=== PATIENT | male | born 1985 | race American Indian/Alaskan Native ===

== ENCOUNTER 2020-12-03 23:04 | Emergency (ER) | payer MEDICAID ==
[2020-12-04] MEDS ORDERED: ASPIRIN 325 MG TAB PO ONE (00:19)
--- NOTE | 2020-12-04 00:56 | XRay Report ---
CHEST 2 VIEWS, 12/03/2020 11:45 PM INDICATION: Chest pain COMPARISON: None FINDINGS: Support devices: None. Heart: The cardiac silhouette is normal in size. Lungs/pleura: The lungs are clear of focal airspace disease or significant pleural effusion. Additional findings: No significant acute abnormality. IMPRESSION: 1. No evidence of acute cardiopulmonary process. Signer Name: Shweta Stover MD Signed: 12/04/2020 12:51 AM Workstation Name: [id number]
[2020-12-04 01:06] LABS: Basophils % (Auto) 0.6 % (0.0-1.8); Eosinophils # (Auto) 0.2 K/mm3 (0.0-0.4); Eosinophils % (Auto) 2.1 % (0.0-4.3); Hematocrit 44.5 % (35.5-45.6); Hemoglobin 15.5 gm/dl (11.8-15.2); Lymphocytes # (Auto) 3.3 K/mm3 (1.2-5.4); Lymphocytes % (Auto) 41.3 % (13.4-35.0); Mean Corpuscular HGB Conc 35 % (32-34); Mean Corpuscular Volume 91 fl (84-94); Monocytes # (Auto) 0.5 K/mm3 (0.0-0.8); Monocytes % (Auto) 5.7 % (0.0-7.3); Platelet Count 256 K/mm3 (140-440); Red Blood Count 4.91 M/mm3 (3.65-5.03); Red Cell Distribution Width 13.5 % (13.2-15.2)
[2020-12-04 01:40] LABS: Alanine Aminotransferase 39 units/L (7-56); Albumin 4.5 g/dL (3.9-5); BUN/Creatinine Ratio 11; Blood Urea Nitrogen 13 mg/dL (9-20); Calcium 8.9 mg/dL (8.4-10.2); Hemolysis Index 6
--- NOTE | 2020-12-04 06:49 | Emergency Department Report ---
ED Chest Pain HPI - General Chief Complaint: Chest Pain Stated Complaint: CHEST PAIN, HBP PUI?: No Time Seen by Provider: 12/04/20 06:07 Source: patient, RN notes reviewed Mode of arrival: Ambulatory Limitations: No Limitations - History of Present Illness Initial Comments: The patient was evaluated in the emergency department for symptoms described in the history of present illness. He/she was evaluated in the context of the global COVID-19 pandemic, which necessitated consideration that the patient might be at risk for infection with the virus that causes COVID-19. Institutional protocols and algorithms that pertain to the evaluation of patients at risk for COVID-19 are in a state of rapid change based on information released by regulatory bodies including the CDC and federal and state organizations. These policies and algorithms were followed during the patient's care in the emergency department. Please note that these policies, procedures and recommendations changed on a rapid basis. This is a 35-year-old gentleman. He is not known to myself previously. He has a past medical history of hypertension, tobacco use, obesity, noncompliant with antihypertensive therapy, does not have a local primary care doctor, and moved here from [place] about 1 year ago. He presents to the ER today with a complaint of nontraumatic central chest pain which started last night, which did not radiate to the back, arms or neck. There is no vomiting, diaphoresis, and he denies travel, surgery, immobilization, leg pain, leg swelling, abdominal pain, lower back pain, DVT and pulmonary embolism risk factors. He did have some trouble breathing, which is now resolved. He denies Covid symptomatology, and denies additional complaints. No recent aspirin consumption. Patient states he feels like he is back to his baseline. No recreational drug use. No family history of DVT, PE, or ischemic heart disease that he is aware of. MD Complaint: chest pain -: Sudden Onset: during rest Pain Location: substernal, left chest Pain Radiation: none Severity: moderate Quality: aching Consistency: intermittent, now resolved Improves With: nothing Worsens With: nothing re: dyspnea Aspirin use within the Past 7 Days: (0) No - Related Data On Oral Contraceptives: No Allergies Allergy/AdvReac Type Severity Reaction Status Date / Time Penicillins Allergy Hives Verified 12/04/20 00:19 Heart Score - HEART Score History: Moderately suspicious EKG: Non-specific Age: < 45 Risk factors: > 3 risk factors or hx of atherosclerotic disease Troponin: < normal limit HEART Score: 4 - EKG Read Time Time EKG Completed: :45 EKG Read Time: 01:48 - Critical Actions Critical Actions: 4-6 pts:12-16.6% risk of adverse cardiac event. Should be admitted ED Review of Systems ROS: Stated complaint: CHEST PAIN, HBP Other details as noted in HPI Constitutional: denies: fever, malaise, weakness Eyes: denies: eye discharge ENT: denies: epistaxis Respiratory: shortness of breath Cardiovascular: chest pain Gastrointestinal: denies: abdominal pain, hematemesis, melena, hematochezia Genitourinary: denies: dysuria Musculoskeletal: denies: back pain Neurological: denies: weakness Psychiatric: as per HPI Hematological/Lymphatic: as per HPI. denies: easy bleeding ED Past Medical Hx - Past Medical History Previous Medical History?: Yes Hx Hypertension: Yes Additional medical history: obesity - Surgical History Past Surgical History?: No - Social History Smoking Status: Current Every Day Smoker Substance Use Type: None ED Physical Exam - General Limitations: No Limitations General appearance: alert, in no apparent distress, obese - Head Head exam: Present: atraumatic, normocephalic - Eye Eye exam: Present: normal appearance, EOMI. Absent: nystagmus - ENT ENT exam: Present: normal exam, normal orophraynx, mucous membranes moist, normal external ear exam - Neck Neck exam: Present: normal inspection, full ROM. Absent: tenderness, meningismus - Respiratory Respiratory exam: Present: normal lung sounds bilaterally. Absent: respiratory distress, wheezes, rales, rhonchi, stridor, decreased breath sounds - Cardiovascular Cardiovascular Exam: Present: regular rate, normal rhythm, normal heart sounds. Absent: bradycardia, tachycardia, irregular rhythm, systolic murmur, diastolic murmur, rubs, gallop - GI/Abdominal GI/Abdominal exam: Present: soft. Absent: distended, tenderness, guarding, rebound, rigid, pulsatile mass - Rectal Rectal exam: Present: deferred - Extremities Exam Extremities exam: Present: normal inspection, full ROM, other (2+ pulses noted in the bilateral upper and lower extremities. There is no palpable cord. negative Homans sign. Muscular compartments are soft. The pelvis is stable.). Absent: pedal edema, calf tenderness - Back Exam Back exam: Present: normal inspection, full ROM. Absent: tenderness, CVA tend erness (R), CVA tenderness (L), paraspinal tenderness, vertebral tenderness - Neurological Exam Neurological exam: Present: alert, oriented X3, other (No facial droop. Tongue midline. Extraocular movements intact bilaterally. Facial sensation intact to light touch in V1, V2, V3 distribution bilaterally. 5 and a 5 strength in 4 extremities. Sensation intact to light touch in 4 extremities.). Absent: motor sensory deficit - Psychiatric Psychiatric exam: Present: normal affect, normal mood - Skin Skin exam: Present: warm, dry, intact, normal color. Absent: rash ED Course Vital Signs 12/04/20 12/04/20 12/04/20 00:17 07:17 07:30 Temperature 98.0 F Pulse Rate 72 56 L Respiratory 18 17 Rate Blood Pressure 216/147 190/126 O2 Sat by Pulse 99 99 99 Oximetry 12/04/20 12/04/20 08:00 08:30 Temperature Pulse Rate 65 58 L Respiratory 18 19 Rate Blood Pressure 194/133 183/123 O2 Sat by Pulse 98 98 Oximetry - Reevaluation(s) Reevaluation #1: 12/04/20 08:29 Differential diagnosis, including but not limited to: GERD, gastritis, hiatal h ernia, pneumonia, acute coronary syndrome, aortic disease, hypertensive urgency Assessment and plan: 35-year-old gentleman, not currently tachycardic, tachypneic or hypoxic, denies DVT and pulmonary embolism risk factors, low risk by Wells criteria for pulmonary embolism, PERC negative, with multiple cardiovascular risk factors, including tobacco use, obesity, hypertension, noncompliance, probable undiagnosed obstructive sleep apnea, with resolved chest pain, and shortness of breath. Moderate risk for major adverse cardiac event as per heart score. Pain-free at this time; fairly hypertensive. Start aspirin, establish IV access, as needed nitroglycerin, and administer antihypertensive therapy. Relatively bradycardic at this time, beta-blockers negative inotropes contraindicated. Obtain CT angiogram of chest to exclude aortic disease, reassess after initial data points, likely admit to the medical service for blood pressure control, and cardiac risk ratification. Have discussed this plan of care with patient, who verbalized understanding and was amenable to this plan of care. Reevaluation #2: 12/04/20 10:[address] scan of the chest negative. Hospital physician, Dr. Diaz to admit patient to the medical service. HUNTER score - Hunter Score Age > 65: (0) No Aspirin use within the Past 7 Days: (0) No 3 or more CAD Risk Factors: (1) Yes 2 or more Angina events in past 24 hrs: (0) No Known CAD with more than 50% Stenosis: (0) No Elevated Cardiac Markers: (0) No ST Deviation Greater than 0.5mm: (0) No HUNTER Score: 1 ED Medical Decision Making - Lab Data Result diagrams: 12/04/20 00:51 12/04/20 00:51 Vital Signs 12/04/20 00:17 Temperature 98.0 F Pulse Rate 72 Respiratory 18 Rate Blood Pressure 216/147 O2 Sat by Pulse 99 Oximetry Lab Results 12/04/20 12/04/20 12/04/20 Range/Units 00:51 00:51 03:25 WBC 8.1 (4.5-11.0) K/mm3 RBC 4.91 (3.65-5.03) M/mm3 Hgb 15.5 H (11.8-15.2) gm/dl Hct 44.5 (35.5-45.6) % MCV 91 (84-94) fl MCH 32 (28-32) pg MCHC 35 H (32-34) % RDW 13.5 (13.2-15.2) % Plt Count 256 (140-440) K/mm3 Lymph % (Auto) 41.3 H (13.4-35.0) % [place] % (Auto) 5.7 (0.0-7.3) % Eos % (Auto) 2.1 (0.0-4.3) % Baso % (Auto) 0.6 (0.0-1.8) % Lymph # (Auto) 3.3 (1.2-5.4) K/mm3 [place] # (Auto) 0.5 (0.0-0.8) K/mm3 Eos # (Auto) 0.2 (0.0-0.4) K/mm3 Baso # (Auto) 0.0 (0.0-0.1) K/mm3 Seg Neutrophils % 50.3 (40.0-70.0) % Seg Neutrophils # 4.1 (1.8-7.7) K/mm3 Sodium 141 (137-145) mmol/L Potassium 3.7 (3.6-5.0) mmol/L Chloride 102.5 (98-107) mmol/L Carbon Dioxide 31 H (22-30) mmol/L Anion Gap 11 mmol/L BUN 13 (9-20) mg/dL Creatinine 1.2 (0.8-1.3) mg/dL Estimated GFR > 60 ml/min BUN/Creatinine Ratio 11 % Glucose 81 (75-100) mg/dL Calcium 8.9 (8.4-10.2) mg/dL Total Bilirubin 0.20 (0.1-1.2) mg/dL AST 32 (5-40) units/L ALT 39 (7-56) units/L Alkaline Phosphatase 62 (35-129) units/L Troponin T < 0.010 < 0.010 (0.00-0.029) ng/mL Total Protein 6.6 (6.3-8.2) g/dL Albumin 4.5 (3.9-5) g/dL Albumin/Globulin Ratio 2.1 % - EKG Data -: EKG Interpreted by Pr EKG shows normal: sinus rhythm Rate: normal - EKG Data When compared to previous EKG there are: previous EKG unavailable 12/04/20 08:27 EKG #1, interpreted at 01: 45 Sinus rhythm, 64 bpm. Normal axis, normal intervals, left ventricular hypertrophy/high left ventricular voltage. This is an abnormal EKG. This is not a STEMI. There is no prior for comparison. EKG #2, interpreted at 07: 35 AM Unchanged from prior, rate 56 bpm. - Radiology Data Radiology results: pending, report reviewed, image reviewed [facility] [address] [place] [address] XRay Report Signed Patient: LOREN GONZALEZ MR#: [id number] 4 : 1985 Acct:[id number] Age/Sex: 35 / M ADM Date: 12/03/20 Loc: ED Attending Dr: Ordering Physician: ED MD BOBBI Date of Service: 12/04/20 Procedure(s): XR chest routine 2V Accession Number(s): [id number] cc: ED DOCMD Fluoro Time In Minutes: CHEST 2 VIEWS, 12/03/2020 11:45 PM INDICATION: Chest pain COMPARISON: None FINDINGS: Support devices: None. Heart: The cardiac silhouette is normal in size. Lungs/pleura: The lungs are clear of focal airspace disease or significant pleural effusion. Additional findings: No significant acute abnormality. IMPRESSION: 1. No evidence of acute cardiopulmonary process. Signer Name: Shweta Stover MD Signed: 12/04/2020 12:51 AM Workstation Name: [id number] Transcribed By: EB Dictated By: Shweta Stover MD Electronically Authenticat ed By: Shweta Stover MD Signed Date/Time: 12/04/2050 DD/ Critical Care Time: Yes Critical care time in (mins) excluding proc time.: 35 Critical care attestation.: If time is entered above; I have spent that time in minutes in the direct care of this critically ill patient, excluding procedure time. ED Disposition Clinical Impression: Acute chest pain, BMI 39.0-39.9,adult, Hypertensive urgency Disposition: DC-09 OP ADMIT IP TO THIS HOSP Is pt being admited?: Yes Does the pt Need Aspirin: No Condition: Good Instructions: Chest Pain (ED) Referrals: PRIMARY CARE, [Primary Care Provider] - 3-5 Days
[2020-12-04] MEDS ORDERED: NITROGLYCERIN 0.4 MG TAB SUBL SL PRN (06:57)
[2020-12-04] MEDS ORDERED: FAMOTIDINE 20 MG/2 ML INJ IV ONE (06:57)
[2020-12-04] MEDS ORDERED: SODIUM CHLORIDE 0.9% 500 ML 500 ML IV ONE (06:57)
--- NOTE | 2020-12-04 09:16 | Cat Scan Report ---
CTA CHEST WITH IV CONTRAST INDICATION / CLINICAL INFORMATION: acute cp, htn; aorta protocol OMNIPAQUE 350 100ML. TECHNIQUE: Axial CT images were obtained through the chest after injection of 100 mL Omnipaque 350 IV contrast. 3 plane MIP and/or 3D reconstructions were produced. All CT scans at this location are performed usin g CT dose reduction for ALARA by means of automated exposure control. COMPARISON: Chest radiograph same day FINDINGS: PULMONARY ARTERIES: No pulmonary emboli. THORACIC AORTA: No significant abnormality. HEART: Suggestion of mild left ventricular hypertrophy and mild left atrial enlargement. CORONARY ARTERIES: No significant calcification. PLEURA: No pleural effusion. No pneumothorax. LYMPH NODES: No significant adenopathy. LUNGS: No acute air space or interstitial disease. ADDITIONAL FINDINGS: None. UPPER ABDOMEN: No acute findings. SKELETAL STRUCTURES: No significant osseous abnormality. IMPRESSION: 1. No CT evidence for pulmonary embolism. 2. The thoracic aorta is unremarkable without evidence of aneurysm or dissection. Signer Name: Lilibeth Garcia MD Signed: 12/04/2020 9:12 AM Workstation Name: [id number] [email or web address]
[2020-12-04 09:55] VITALS: BP 183/123
[2020-12-04] MEDS ORDERED: ONDANSETRON 4 MG/2 ML INJ IV PRN (11:43)
[2020-12-04] MEDS ORDERED: traMADol 50 MG TAB PO PRN (11:43)
[2020-12-04] MEDS ORDERED: ACETAMINOPHEN 325 MG TAB PO PRN ×2 (11:43)
--- NOTE | 2020-12-04 11:43 | History and Physical Report ---
History of Present Illness Date of examination: 12/04/20 Date of admission: 12/04/2020 Chief complaint: Chest pain History of present illness: 35-year-old male with significant past medical history of hypertension, tobacco use, obesity and medical noncompliance presents to the emergency department with complaints of chest pain. The patient reported that the chest pain started last night, which did not radiate to the back, arms or neck. There is no vomiting, diaphoresis, and he denies travel, surgery, immobilization, leg pain, leg swelling, abdominal pain, lower back pain, DVT and pulmonary embolism risk factors. The patient did report some associated shortness of breath. No fever chills. No cough cold-like symptoms. Past History Past Medical History: hypertension, other (Obesity) Past Surgical History: No surgical history Social history: smoking Family history: no significant family history Medications and Allergies Allergies Allergy/AdvReac Type Severity Reaction Status Date / Time Penicillins Allergy Hives Verified 12/04/20 00:19 Active Meds: Active Medications Nitroglycerin (Nitroglycerin 0.4 Mg Tab Subl) 0.4 mg SL .Q5MIN PRN PRN Reason: Chest Pain Review of Systems All systems: negative Exam - Constitutional Vitals: Temp Pulse Resp BP Pulse Ox 98.0 F 58 L 19 183/123 98 12/04/20 00:17 12/04/20 08:30 12/04/20 08:30 12/04/20 08:30 12/04/20 08:30 General appearance: Present: no acute distress, well-nourished - EENT Eyes: Present: PERRL ENT: hearing intact, clear oral mucosa - Neck Neck: Present: supple, normal ROM - Respiratory Respiratory effort: normal Respiratory: bilateral: CTA - Cardiovascular Heart Sounds: Present: S1 & S2. Absent: rub, click - Extremities Extremities: pulses symmetrical, No edema Peripheral Pulses: within normal limits - Abdominal General gastrointestinal: Present: soft, non-tender, non-distended, normal bowel sounds Male genitourinary: Present: normal - Integumentary Integumentary: Present: clear, warm, dry - Musculoskeletal Musculoskeletal: gait normal, strength equal bilaterally - Psychiatric Psychiatric: appropriate mood/affect, intact judgment & insight - Neurologic Neurologic: CNII-XII intact, moves all extremities HEART Score - HEART Score EKG: Non-specific Age: < 45 Risk factors: > 3 risk factors or hx of atherosclerotic disease Troponin: Troponin T < 0.010 ng/mL (0.00-0.029) 12/04/20 03:25 Troponin: < normal limit - Critical Actions Critical Actions: 4-6 pts:12-16.6% risk of adverse cardiac event. Should be admitted Results - Labs CBC & Chem 7: 12/04/20 00:51 06 00:51 Labs: Laboratory Last Values WBC 8.1 K/mm3 (4.5-11.0) 12/04/20 00:51 RBC 4.91 M/mm3 (3.65-5.03) 12/04/20 00:51 Hgb 15.5 gm/dl (11.8-15.2) H 12/04/20 00:51 Hct 44.5 % (35.5-45.6) 12/04/20 00:51 MCV 91 fl (84-94) 12/04/20 00:51 MCH 32 pg (28-32) 12/04/20 00:51 MCHC 35 % (32-34) H 12/04/20 00:51 RDW 13.5 % (13.2-15.2) 12/04/20 00:51 Plt Count 256 K/mm3 (140-440) 12/04/20 00:51 Lymph % (Auto) 41.3 % (13.4-35.0) H 12/04/20 00:51 [place] % (Auto) 5.7 % (0.0-7.3) 12/04/20 00:51 Eos % (Auto) 2.1 % (0.0-4.3) 12/04/20 00:51 Baso % (Auto) 0.6 % (0.0-1.8) 12/04/20 00:51 Lymph # (Auto) 3.3 K/mm3 (1.2-5.4) 12/04/20 00:51 [place] # (Auto) 0.5 K/mm3 (0.0-0.8) 12/04/20 00:51 Eos # (Auto) 0.2 K/mm3 (0.0-0.4) 12/04/20 00:51 Baso # (Auto) 0.0 K/mm3 (0.0-0.1) 12/04/20 00:51 Seg Neutrophils % 50.3 % (40.0-70.0) 12/04/20 00:51 Seg Neutrophils # 4.1 K/mm3 (1.8-7.7) 12/04/20 00:51 Sodium 141 mmol/L (137-145) 12/04/20 00:51 Potassium 3.7 mmol/L (3.6-5.0) 12/04/20 00:51 Chloride 102.5 mmol/L (98-107) 12/04/20 00:51 Carbon Dioxide 31 mmol/L (22-30) H 12/04/20 00:51 Anion Gap 11 mmol/L 12/04/20 00:51 BUN 13 mg/dL (9-20) 12/04/20 00:51 Creatinine 1.2 mg/dL (0.8-1.3) 12/04/20 00:51 Estimated GFR > 60 ml/min 12/04/20 00:51 BUN/Creatinine Ratio 11 % 12/04/20 00:51 Glucose 81 mg/dL (75-100) 12/04/20 00:51 Calcium 8.9 mg/dL (8.4-10.2) 12/04/20 00:51 Magnesium 2.30 mg/dL (1.7-2.3) 12/04/20 07:27 Total Bilirubin 0.20 mg/dL (0.1-1.2) 12/04/20 00:51 AST 32 units/L (5-40) 12/04/20 00:51 ALT 39 units/L (7-56) 12/04/20 00:51 Alkaline Phosphatase 62 units/L (35-129) 12/04/20 00:51 Total Creatine Kinase 193 units/L (55-170) H 12/04/20 07:27 Troponin T < 0.010 ng/mL (0.00-0.029) 12/04/20 03:25 Total Protein 6.6 g/dL (6.3-8.2) 12/04/20 00:51 Albumin 4.5 g/dL (3.9-5) 12/04/20 00:51 Albumin/Globulin Ratio 2.1 % 12/04/20 00:51 Assessment and Plan Assessment and plan: Chest pain. Patient will be placed on the chest pain pathway. We will follow- up serial cardiac isoenzymes and EKG. Cardiology consultation. Await cardiolog y recommendations regarding ischemic evaluation. Hypertension. Resume home antihypertensive medications. Obesity. Patient will be counseled on the importance of a balanced diet, exercise and weight loss.
[2020-12-04 12:20] LABS: Eosinophils # (Auto) 0.1 K/mm3 (0.0-0.4); Eosinophils % (Auto) 2.4 % (0.0-4.3); Monocytes # (Auto) 0.4 K/mm3 (0.0-0.8); Monocytes % (Auto) 6.6 % (0.0-7.3)
[2020-12-04 12:25] LABS: BUN/Creatinine Ratio 8; Blood Urea Nitrogen 10 mg/dL (9-20); Calcium 8.8 mg/dL (8.4-10.2); Hemolysis Index 18
[2020-12-04 12:29] LABS: Basophils % (Auto) 0.4 % (0.0-1.8); Hematocrit 44.7 % (35.5-45.6); Hemoglobin 15.3 gm/dl (11.8-15.2); Lymphocytes # (Auto) 2.1 K/mm3 (1.2-5.4); Lymphocytes % (Auto) 34.4 % (13.4-35.0); Mean Corpuscular HGB Conc 34 % (32-34); Mean Corpuscular Volume 90 fl (84-94); Platelet Count 245 K/mm3 (140-440); Red Blood Count 4.96 M/mm3 (3.65-5.03); Red Cell Distribution Width 13.3 % (13.2-15.2)
--- NOTE | 2020-12-06 08:02 | Discharge Summary ---
Providers - Providers Date of Admission: 12/04/2020 Date of discharge: 12/04/20 12/04/20 Consult to Cardiac Rehabilitation [CONS] Routine Reason For Exam: Phase I 12/04/20 11:43 Consult to Cardiology [CONS] Routine Consulting Provider: SARAHY PEARSON Reason For Exam: cp Primary care physician: [facility] [employer] Hospitalization Reason for admission: cp Condition: Good Hospital course: 35-year-old male with significant past medical history of hypertension, tobacco use, obesity and medical noncompliance presents to the emergency department with complaints of chest pain. The patient reported that the chest pain started last night, which did not radiate to the back, arms or neck. There is no vomiting, diaphoresis, and he denies travel, surgery, immobilization, leg pain, leg swelling, abdominal pain, lower back pain, DVT and pulmonary embolism risk factors. The patient did report some associated shortness of breath. No fever chills. No cough cold-like symptoms. Patient was placed on the chest pain pathway. Serial cardiac isoenzymes and EKG were ordered. Cardiology consultation was also ordered. Awaited cardiology recommendations regarding ischemic evaluation. However, shortly after admission patient left AMA but did not sign the form as reported by the nurse at approximately 1535. Disposition: DC-07 LEFT AGAINST MED ADVICE Final Discharge Diagnosis (Prints w/discharge instructions): Chest pain Core Measure Documentation - Palliative Care Palliative Care/ Comfort Measures: Not Applicable - Core Measures Any of the following diagnoses?: none Exam - Constitutional Vitals: Temp Pulse Resp BP Pulse Ox 98.0 F 58 L 19 183/123 98 12/04/20 00:17 12/04/20 08:30 12/04/20 08:30 12/04/20 08:30 12/04/20 08:30 General appearance: Present: no acute distress, well-nourished - EENT Eyes: Present: PERRL ENT: hearing intact, clear oral mucosa - Neck Neck: Present: supple, normal ROM - Respiratory Respiratory effort: normal Respiratory: bilateral: CTA - Cardiovascular Heart Sounds: Present: S1 & S2. Absent: rub, click - Extremities Extremities: pulses symmetrical, No edema Peripheral Pulses: within normal limits - Abdominal General gastrointestinal: Present: soft, non-tender, non-distended, normal bowel sounds Male genitourinary: Present: normal - Integumentary Integumentary: Present: clear, warm, dry - Musculoskeletal Musculoskeletal: gait normal, strength equal bilaterally - Psychiatric Psychiatric: appropriate mood/affect, intact judgment & insight - Neurologic Neurologic: CNII-XII intact, moves all extremities Plan Follow up with: PRIMARY CARE,MD [Primary Care Provider] - 3-5 Days
--- NOTE | 2020-12-09 12:40 | Electrocardiograph Report ---
[facility] Test Date: 2020-12-04 Test Time: 01:45:13 Pat Name: LOREN GONZALEZ Department: Room: A452 Gender: M Industrial Specialist: NEVIN : 1985 Requested By: NICOLA BRAMBILA Order Number: [id number] Reading MD: Bird Lewis Measurements Intervals [place] Rate: 64 P: 48 VA: 158 QRS: 3 QRSD: 92 T: 10 QT: 404 QTc: 418 Interpretive Statements Sinus rhythm Left ventricular hypertrophy No previous ECG available for comparison Electronically Signed On 12-09-2020 12:40:08 EDT by Bird Lewis
--- NOTE | 2020-12-09 12:45 | Electrocardiograph Report ---
[facility] Test Date: 2020-12-04 Test Time: 07:33:19 Pat Name: LOREN GONZALEZ Department: Room: A452 Gender: M Medical Records Supervisor: SCOTT : 1985 Requested By: NICOLA BRAMBILA Order Number: [id number] Reading MD: Bird Lewis Measurements Intervals [place] Rate: 56 P: 21 ME: 178 QRS: 12 QRSD: 92 T: 16 QT: 432 QTc: 416 Interpretive Statements Sinus bradycardia Compared to ECG 12/04/2020 01:45:13 Sinus rate has slowed Electronically Signed On 12-09-2020 12:45:26 EDT by Bird Lewis
== END 2020-12-04 16:22 | disposition left against medical advice (07) ==
LOC: EDSEX → ED 23:04 → 4A 12-04 16:15 → UNDOADMIN 12-04 16:15
DX: I16.0 Hypertensive urgency (principal); R07.89 Other chest pain; I10 Essential (primary) hypertension; F17.200 Nicotine dependence, unspecified, uncomplicated; E66.8 Other obesity; Z68.30 Body mass index [BMI] 30.0-30.9, adult; Z88.0 Allergy status to penicillin; Z79.899 Other long term (current) drug therapy
CPT/HCPCS: 36415; 71046; 71275; 80048; 80053; 82550; 83735; 84484; 85025; 93005; 93306; 96374; 99291; J7040; Q9967; 96360; G0378